=== PATIENT | male | born 1960 | race Caucasian/White ===

== ENCOUNTER 2022-04-05 21:01 | Emergency (ER) | payer OTHER, SELFPAY ==
--- NOTE | 2022-04-05 21:10 | DI.RAD.S_ITS ---
PROCEDURE: XR FEMUR RT 1V INDICATIONS: jumped and felt sharp pain TECHNIQUE: 4 views of the femur were acquired. COMPARISON: None. FINDINGS: Bones: No fractures or dislocations. No suspicious bony lesions. Soft tissues: No suspicious soft tissue calcifications or masses. IMPRESSION: 1. No fracture or dislocation. Dictated by: Raffy Sarmiento M.D. on 04/05/2022 at 23:04 Approved by: Raffy Sarmiento M.D. on 04/05/2022 at 23:04
[2022-04-05 21:11] VITALS: BP 165/97; PULSE 97; RESP 20; TEMP 36.7; O2SAT 98; BMI 31.1
--- NOTE | 2022-04-05 22:52 | DI.RAD.S_ITS ---
PROCEDURE: XR PELVIS 1-2V INDICATIONS: fall pain TECHNIQUE: Single-view of the pelvis acquired. COMPARISON: None. FINDINGS: Bones: No fractures or dislocations. No suspicious bony lesions. Soft tissues: Visualized bowel gas pattern is normal. No suspicious soft tissue calcifications. IMPRESSION: 1. No fracture or dislocation. Dictated by: Raffy Sarmiento M.D. on 04/06/2022 at 0:17 Approved by: Raffy Sarmiento M.D. on 04/06/2022 at 0:17
--- NOTE | 2022-04-06 00:56 | ED.LOWEXIN ---
HPI - Extremity Injury (Lower) General Chief Complaint: Extremity Injury, Lower Stated Complaint: Rt leg pain, Fell Time Seen by Provider: 04/06/22 00:56 Source: patient Mode of arrival: Ambulatory History of Present Illness HPI Narrative: Patient is a healthy 61-year-old male who presents with right thigh pain. States that around 3:00 p.m. this afternoon he jumped over about a 3-4 foot ditch. He sure that he landed on it but has been having continuous pain in his or right superior thigh. He is able ambulate but needing crutches. He denies any head injury no loss of consciousness. He has no chest pain or stomach pain. His left leg is fine. He denies any knee ankle or foot pain. Related Data Previous Rx's Medication Instructions Recorded erythromycin 5 mg/gram (0.5 %) eye 1 applic ophthalmic (eye) TID #1 g 12/08/20 ointment Allergies Allergy/AdvReac Type Severity Reaction Status Date / Time Penicillins Allergy Severe Swelling Verified 12/08/20 08:11 Review of Systems Review of Systems Narrative: GENERAL: Denies chills,fever HEENT: Denies throat pain RESPIRATORY: Denies dyspnea, cough, wheezing CARDIOVASCULAR: Denies chest pain, palpitations GASTROINTESTINAL: Denies nausea, vomiting MUSCULOSKELETAL: See HPI SKIN: No rash, no laceration, no pruritus NEUROLOGIC: Denies weakness, dizziness, headache, numbness 8 point review of systems is negative except for those stated above and HPI Patient History Social History Smoking Status: Never smoker Smoking Status: Never smoker alcohol intake frequency: 3 or more drinks per day Substance Use Type: marijuana Exam Initial Vital Signs Initial Vital Signs: Vital Signs Temperature 98.0 F 04/05/22 21:11 Pulse Rate 97 H 04/05/22 21:11 Respiratory Rate 20 04/05/22 21:11 Blood Pressure 165/97 H 04/05/22 21:11 Pulse Oximetry 98 04/05/22 21:11 Oxygen Delivery Method 04/05/22 21:11 GENERAL: Alert well-appearing 61-year-old male CARDIOVASCULAR: peripheral pulses in tact, cap refill <2 sec RESPIRATORY: No respiratory distress, speaks in full sentences without difficulty ABDOMEN: Soft, nontender, no guarding or rebound EXTREMITIES: Normal range of motion, no clubbing or edema. Neurovascularly intact Right lower extremity tender in hip but does some swelling and superior anterior thigh. IT band appears intact. Knee is stable ankle is stable foot is stable distal pedal pulse intact and present. No obvious bruise but tender to touch in 1 specific spot. NEUROLOGICAL: Cranial nerves II through XII grossly intact. Normal gait and speech. SKIN: Warm, dry, no petechiae, no rashes or lesions. Course Orders Ordered: ED Orders 04/05/22 21:10 XR femur RT 1V Stat 04/05/22 22:52 XR pelvis 1-2V Stat Vital Signs Vital signs: Vital Signs - 8 hr 04/05/22 21:11 04/06/22 01:26 Temperature 98.0 F Pulse Rate 97 H 95 H Respiratory Rate 20 20 Blood Pressure 165/97 H 122/85 Pulse Oximetry 98 95 Oxygen Delivery Method Room Air Room Air MDM - Extremity Injury (Lower) Imaging Data Extremity x-ray #1: Radiologist's Impression: t: Kenneth Hayward MR#: [id number] : 1960 Acct:[id number] Age/Sex: 61 / M Date of Service: 04/05/22 Loc: ED Accession Number: [id number] ?? Procedure: XR femur RT 1V Ordering Provider: Donna Bacon D.O. PROCEDURE:? XR FEMUR RT 1V ? INDICATIONS:? jumped and felt sharp pain ? TECHNIQUE:? 4 views of the femur were acquired.? ? COMPARISON:? None. ? FINDINGS:? ? Bones:? No fractures or dislocations.? No suspicious bony lesions.? ? Soft tissues:? No suspicious soft tissue calcifications or masses.? ? IMPRESSION:? ? 1. No fracture or dislocation.? ? ? Dictated by: Raffy Sarmiento M.D. on 04/05/2022 at 23:04 ? ? Approved by: Raffy Sarmiento M.D. on 04/05/2022 at 23:04 ? Extremity x-ray #2: Radiologist's Impression: XRay Report Signed Patient: Kenneth Hayward MR#: [id number] : 1960 Acct:[id number] Age/Sex: 61 / M Date of Service: 04/05/22 Loc: ED Accession Number: [id number] ?? Procedure: XR pelvis 1-2V Ordering Provider: Donna Bacon D.O. PROCEDURE:? XR PELVIS 1-2V ? INDICATIONS:? fall pain ? TECHNIQUE:? Single-view of the pelvis acquired.? ? COMPARISON:? None. ? FINDINGS:? ? Bones:? No fractures or dislocations.? No suspicious bony lesions.? ? Soft tissues:? Visualized bowel gas pattern is normal.? No suspicious soft tissue calcifications.? ? IMPRESSION:? ? 1. No fracture or dislocation. ? ? Dictated by: Raffy Sarmiento M.D. on 04/06/2022 at 0:17 ? ? MDM Narrative Medical decision making narrative: Patient has some mild swelling pinpoint pain probably bruising x-rays are negative. He is able to ambulate but it does hurt. This time I do not see need for CT. Recommend ice on supportive care only. Discharge Plan Departure Patient Disposition: Home Clinical Impression: Contusion of lower extremity Instructions: Contusion Activity Restrictions/Additional Instructions: *You have been diagnosed with contusion *What to do: Use crutches as needed ice 20-30 minutes at a time. Increase activity as tolerated. If still having pain in 7-10 days may require repeat imaging with her PCP *Continue to take medications as directed Motrin 600 mg every 6 hours if needed for [id number] pain Tylenol 650 mg every 6 hours if needed for [id number] pain *Follow up with your primary care provider in 2-3 days or call [phone] *Return to ER if you should have increasing pain swelling, inability to walk or any new, worsening or concerning symptoms Prescriptions: No Action erythromycin 5 mg/gram (0.5 %) ointment 1 applic ophthalmic (eye) TID Qty: 1 0RF Referrals: Miscellaneous,Doctor[facility] [Primary Care Provider] - Visit Report Forms: Patient Portal/API
[2022-04-06 01:26] VITALS: BP 122/85; PULSE 95; RESP 20; O2SAT 95
== END 2022-04-06 01:26 | disposition home or self-care (01) ==
PROVIDERS: Emergency Provider Emergency Medicine; Family Provider Family Medicine
DX: S80.11XA Contusion of right lower leg, initial encounter (principal); W18.30XA Fall on same level, unspecified, initial encounter
CPT/HCPCS: 72170; 73551; 99283

== ENCOUNTER → 2023-08-06 11:52 | Outpatient (CLI) | payer OTHER, SELFPAY | PROVIDERS: Family Provider Family Medicine; Visit Provider Student in an Organized Health Care Education/Training Program | DX: S80.812A Abrasion, left lower leg, initial encounter (principal); L08.9 Local infection of the skin and subcutaneous tissue, unspecified | CPT/HCPCS: 87070; 87205 ==